=== PATIENT | female | born 1975 | race Two or more races ===

== ENCOUNTER 2016-11-08 23:59 | Emergency (ER) | payer OTHER ==
--- NOTE | ~2016-11-08 | CT2 ---
[facility] A Service of [facility] & [facility] RADIOLOGY TEXT RESULTS PATIENT: ABIMAEL WEAVER LOCATION: [facility] : [birth year] UNIT #: [id number] AGE: [address]: Jeremiah Ley MD SEX: F ORDER DR: [id number] [facility] [address] [place], [place] [address] [id number] E MR#: [id number] Acc #: [id number] NAME: ABIMAEL WEAVER : 1975 SEX: F STUDY DATE/TIME: 11/09/2016 2:35 UNIT: [facility] ROOM: STUDY DESCRIPTION: CT Abd and Pelv W Cont Attending Physician: Eben Ley M.D. Ordering Physician: Eben Ley M.D. Primary Care Physician: Conner Gonzáles M.D. MEDICAL IMAGING REPORT This report is preliminary unless electronic signature is present EXAM CT abdomen and pelvis with contrast, 11/09/2016 HISTORY 40-year-old female in the ED complaining of 1-day history of left side abdomen pain with nausea and vomiting. 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 She also has a history of hepatitis B. TECHNIQUE CT examination of the abdomen and pelvis with oral and IV contrast. This CT exam was performed with one or more of the following radiation dose reduction techniques: automatic exposure control, adjustment of mA and/or kV according to patient size, and iterative reconstruction. COMPARISON CT abdomen and pelvis, 05/22/2016 FINDINGS ABDOMEN FINDINGS: Moderate hepatomegaly and diffuse hepatic steatosis. No mass or other focal liver lesion is demonstrated. Cholecystectomy. No bile duct dilatation. Pancreas and spleen are unremarkable. Bilateral benign-appearing renal cysts. No evidence of urinary obstruction. Mild generalized dilatation of small bowel and colon to the level of the low rectum. GI contrast material is present in small bowel and throughout most of the colon, and there is no evidence of bowel obstruction. The appendix is surgically absent by history. Normal caliber abdominal aorta. PELVIS FINDINGS: The uterus is small. Bladder and rectum are unremarkable. No mass, adenopathy or fluid collection within the abdomen [facility] A Service of [facility] & [facility] RADIOLOGY TEXT RESULTS PATIENT: ABIMAEL WEAVER LOCATION: [facility] : [birth year] UNIT #: [id number] AGE: [address]: Jeremiah Ley MD SEX: F ORDER DR: or pelvis. Limited lung base images show no active disease in the lower chest. IMPRESSION 1. No acute abnormality is identified within the abdomen or pelvis. 2. Hepatomegaly and diffuse hepatic steatosis. 3. Surgically absent appendix. 4. Bilateral benign renal cysts. 5. No change since 05/22/2016. Dictated by... Leonard Reyes M.D. THIS IS AN ELECTRONICALLY VERIFIED REPORT Leonard Reyes M.D. at 11/09/2016 9:43 PM Marybel TD: 11/09/2016 12:38 JOB #: [id number] MEDICAL IMAGING REPORT Page 1 of 1 COPY
[2016-11-08 18:44] LABS: BASOPHIL# 0.1 X10e3 (0-0.3); BASOPHIL% 0.7 % (0-2.5); EOSINOPHIL# 0.1 X10e3 (0-0.7); EOSINOPHIL% 0.5 % (0.0-7.0); HEMATOCRIT 35.6 % (35.0-45.0); HEMOGLOBIN 12.1 gm/dL (12.0-16.0); LYMPHOCYTE# 2.5 X10e3 (1.0-3.5); LYMPHOCYTE% 24.9 % (17.0-45.0); MEAN CELL VOLUME 97.9 FL (83-96); MEAN CORPUSCULAR HEMOGLOBIN 33.2 PG (28-34); MEAN CORPUSCULAR HGB CONC 33.9 g/dL (30-36); MEAN PLATELET VOLUME 9.8 FL (6.5-11.5); MONOCYTE# 0.6 X10e3 (0-1.0); MONOCYTE% 6.3 % (3.0-12.0); NEUTROPHIL# 6.7 X10e3 (1.5-7.1); NEUTROPHIL% 67.6 % (40-75); PLATELET COUNT 153 X10e3 (140-420); RED BLOOD COUNT 3.63 X10e (3.90-5.30); RED CELL DISTRIBUTION WIDTH 13.4 % (11.0-15.5); WHITE BLOOD COUNT 9.9 X10e3 (4.0-10.5)
[2016-11-08 18:53] LABS: DIFF IND NO
[2016-11-08 19:08] LABS: ALBUMIN SERUM 3.8 g/dL (3.5-5.0); ALKALINE PHOSPHATASE 201 U/L (32-92); ALT (SGPT) 35 U/L (10-40); AST (SGOT) 28 U/L (10-42); BILIRUBIN, DIRECT 0.1 mg/dL (0.0-0.2); BILIRUBIN,INDIRECT 0.9 mg/dL (0.0-0.9); BLOOD UREA NITROGEN 21 mg/dL (9-23); BUN/CREATININE RATIO 23.33; CALCIUM SERUM 9.7 mg/dL (8.4-10.2); CARBON DIOXIDE 25 mmol/L (22-31); CHLORIDE 108 mmol/L (100-111); CREATININE SERUM 0.9 mg/dL (0.6-1.4); GLOM FILT RATE Estimated ABOVE60 mL/min (>60); GLUCOSE FASTING 120 mg/dL (70-110); LIPASE 25 U/L (22-51); POTASSIUM 3.7 mmol/L (3.5-5.1); PROTEIN TOTAL SERUM 7.2 g/dL (6.0-8.3); SODIUM 140 mmol/L (135-145)
[~2016-11-08 23:59] MED LIST: ACETAMINOPHEN PO; AMOXICILLIN PO; ANEXSIA 5/325 M1 TA1 PO; BACTRIM DS TABL1 TA2 PO; BENTYL20 M1 PO; BIAXIN PO; BIAXIN250 MG PO; COLACE PO; FLAGYL PO; FLAGYL250 M1 PO; FLEXERIL PO; FLOMAX0.4 M1 PO; GABAPENTIN300 M2 PO; HYDROCODON-ACE1 EAC7 PO; HYDROXYZINE HCL25 M1 PO; IRON1 TAB PO; OMEPRAZOLE40 MG PO; ONDANSETRO4 MG/UDTAB PO; ONDANSETRON4 MG/TAB PO; PEPTO BISMOL PO; PERCOCET PO; PHENERGAN12.5 MG PO; PHENERGAN25 M1 PO; PHENERGAN25 MG PO; PRILOSEC PO; PRILOSEC20 M1 PO; PROTONIX PO; PYRIDIUM PO; REGLAN10 MG PO; SERTRALINE HCL50 M1 PO; TETRACYCLINE PO; THORAZINE PO; TRAMADOL HCL E300 M1 PO; TRAMADOL HCL50 M2 PO; ULTRAM PO; VICODIN 5/1 TAB 5/50 PO; VIREAD300 MG PO; ZOFRAN ODT4 MG/UDTAB PO; ZOFRAN PO; [UNRECOGNIZED DRUG - OTHER]; [UNRECOGNIZED DRUG - OTHER] PO
[2016-11-09 00:26] LABS: URINE SOURCE CLEAN CATCH
[2016-11-09 00:34] LABS: URINE APPEARANCE CLEAR; URINE BILIRUBIN NEG (NEG); URINE BLOOD NEG (NEG); URINE COLOR YELLOW; URINE GLUCOSE NEG (NEG); URINE KETONE NEG (NEG); URINE LEUKOCYTE ESTERASE NEG (NEG); URINE NITRATE NEG (NEG); URINE PH 5.5 (5-8); URINE PROTEIN NEG (NEG); URINE SPECIFIC GRAVITY 1.008 (1.003-1.035); URINE UROBILINOGEN 0.2 MG/DL (NEG)
[2016-11-09 01:01] LABS: CULTURE INDICATED? NO
== END 2016-11-09 04:40 | disposition home or self-care (01) ==
LOC: CED 23:59
PROVIDERS: Emergency Medicine
DX: R10.84 Generalized abdominal pain (principal); R11.10 Vomiting, unspecified; Z85.89 Personal history of malignant neoplasm of other organs and systems; Z87.19 Personal history of other diseases of the digestive system; Z90.49 Acquired absence of other specified parts of digestive tract
CPT/HCPCS: 36415; 74177; 80048; 80076; 81003; 83690; 85025; 96361; 96374; 96375; 96376; 99284; J2270; J2405; Q9967

== ENCOUNTER 2016-11-26 15:40 | Emergency (ER) | payer OTHER ==
--- NOTE | ~2016-11-26 | US85 ---
[facility] A Service of [facility] RADIOLOGY TEXT RESULTS PATIENT: ABIMAEL WEAVER LOCATION: [facility] : 77 UNIT #: [id number] AGE: [address]: Yennifer Perez SEX: F ORDER DR: [id number] [facility] [address]. [place], [place] [address] [id number] E MR#: [id number] Acc #: [id number] NAME: ABIMAEL WEAVER : 1975 SEX: F STUDY DATE/TIME: 11/26/2016 16:02 UNIT: [facility] ROOM: STUDY DESCRIPTION: [facility] Attending Physician: Yennifer Perez Pa-C Ordering Physician: Yennifer Perez Pa-C Primary Care Physician: Marium Cruz M.D. MEDICAL IMAGING REPORT This report is preliminary unless electronic signature is present EXAM Ultrasound left lower extremity venous structures. HISTORY Pain for 3 weeks. Pain 3 weeks mostly behind left knee. No history of clots. No relevant surgical history. TECHNIQUE Venous ultrasound examination of the left lower extremity was performed using grayscale, spectral Doppler and color flow Doppler imaging. FINDINGS The examination is negative. There is no evidence of left lower extremity deep venous thrombus from the groin to the lower calf. Visualized greater saphenous vein is also patent. IMPRESSION Negative examination. No evidence of left lower extremity deep venous thrombosis. Dictated by... Gregorio Schaefer M.D. THIS IS AN ELECTRONICALLY VERIFIED REPORT Gregorio Schaefer M.D. at 11/28/2016 10:42 PM MILTON/brooke TD: 11/26/2016 21:01 JOB #: [id number] [facility] A Service of [facility] RADIOLOGY TEXT RESULTS PATIENT: ABIMAEL WEAVER LOCATION: [facility] : [birth year] UNIT #: [id number] AGE: [address]: Yennifer Perez SEX: F ORDER DR: MEDICAL IMAGING REPORT Page 1 of 1 COPY
== END 2016-11-26 17:31 | disposition home or self-care (01) ==
LOC: CFTX 15:40
DX: M25.562 Pain in left knee (principal); Z90.49 Acquired absence of other specified parts of digestive tract
CPT/HCPCS: 73560; 93971; 99284

== ENCOUNTER 2016-11-30 14:22 | Emergency (ER) | payer OTHER ==
--- NOTE | ~2016-11-30 | CR72 ---
[facility] A Service of [facility] & [facility] RADIOLOGY TEXT RESULTS PATIENT: ABIMAEL WEAVER LOCATION: [facility] : [birth year] UNIT #: [id number] AGE: [address]: Molina Hicks MD SEX: F ORDER DR: [id number] [facility] [address] [place], [place] [address] [id number] E MR#: [id number] Acc #: [id number] NAME: ABIMAEL WEAVER : 1975 SEX: F STUDY DATE/TIME: 11/30/2016 13:37 UNIT: [facility] ROOM: STUDY DESCRIPTION: CR Chest Single View Portable Attending Physician: Molina Hicks M.D. Ordering Physician: Molina Hicks M.D. Primary Care Physician: Marium Cruz M.D. MEDICAL IMAGING REPORT This report is preliminary unless electronic signature is present EXAM Single view chest HISTORY Chest pain, weakness since 11/29/16 COMPARISON STUDIES Prior exam from 06/18/16 FINDINGS The heart size is within normal limits for portable technique. No pneumothorax, pleural effusion or acute infiltrate is seen. No aggressive osseous abnormalities are identified. Dictated by... Marion Kahn M.D. THIS IS AN ELECTRONICALLY VERIFIED REPORT Marion Kahn M.D. at 12/01/2016 12:27 PM AFF/ea TD: 11/30/2016 20:46 JOB #: [id number] MEDICAL IMAGING REPORT Page 1 of 1 COPY
--- NOTE | ~2016-11-30 | EKG ---
PATIENT: ABIMAEL WEAVER UNIT #: [id number] Ventricular Rate: 76 BPM Atrial Rate: 76 BPM P-R Interval: 138 ms QRS Duration: 84 ms Q-T Interval: 372 ms QTC Calculation(Bezet): 418 ms P [place]: 59 degrees Calculated R [place]: 64 degrees Calculated T [place]: 52 degrees Diagnosis Line: Normal sinus rhythm Diagnosis Line: Normal ECG Diagnosis Line: Diagnosis Line: Confirmed by BEAR YAÑEZ MD ([id number]) on 11/30/2016 Diagnosis Line: 10:28:38 PM INTERPRETING MD: PARI ESPINAL
[2016-11-30 13:42] LABS: BASOPHIL# 0.1 X10e3 (0-0.3); BASOPHIL% 0.9 % (0-2.5); EOSINOPHIL# 0.1 X10e3 (0-0.7); EOSINOPHIL% 0.7 % (0.0-7.0); HEMATOCRIT 36.2 % (35.0-45.0); HEMOGLOBIN 12.2 gm/dL (12.0-16.0); LYMPHOCYTE# 1.6 X10e3 (1.0-3.5); LYMPHOCYTE% 19.5 % (17.0-45.0); MEAN CORPUSCULAR HEMOGLOBIN 33.3 PG (28-34); MEAN CORPUSCULAR HGB CONC 33.6 g/dL (30-36); MEAN PLATELET VOLUME 10.6 FL (6.5-11.5); MONOCYTE# 0.8 X10e3 (0-1.0); MONOCYTE% 9.6 % (3.0-12.0); NEUTROPHIL# 5.5 X10e3 (1.5-7.1); NEUTROPHIL% 69.3 % (40-75); PLATELET COUNT 139 X10e3 (140-420); RED BLOOD COUNT 3.66 X10e (3.90-5.30); RED CELL DISTRIBUTION WIDTH 13.9 % (11.0-15.5)
[2016-11-30 13:46] LABS: DIFF IND NO
[2016-11-30 14:09] LABS: PARTIAL THROMBOPLASTIN TIME 20.2 SECONDS (23.5-31.3); PROTHROMBIN TIME (PATIENT) 10.8 SECONDS (9.6-11.5)
[2016-11-30 14:11] LABS: ALBUMIN SERUM 3.7 g/dL (3.5-5.0); BILIRUBIN, DIRECT 0.3 mg/dL (0.0-0.2); BILIRUBIN,INDIRECT 1.1 mg/dL (0.0-0.9); BILIRUBIN,TOTAL 1.4 mg/dL (0.2-2.0); CALCIUM SERUM 9.2 mg/dL (8.4-10.2); GLOM FILT RATE Estimated 70.4 mL/min (>60); POTASSIUM 3.6 mmol/L (3.5-5.1); PROTEIN TOTAL SERUM 7.1 g/dL (6.0-8.3)
[2016-11-30 15:36] LABS: POC - CKMB <1.0 ng/mL (0.0-7.9); POC - TROPONIN <0.05 ng/mL (<=0.05)
== END 2016-11-30 17:27 | disposition home or self-care (01) ==
LOC: CED 14:22
PROVIDERS: Emergency Medicine
DX: R07.9 Chest pain, unspecified (principal); Z90.49 Acquired absence of other specified parts of digestive tract; Z88.0 Allergy status to penicillin; Z88.8 Allergy status to other drugs, medicaments and biological substances
CPT/HCPCS: 36415; 71010; 80048; 80076; 82553; 83880; 84484; 85025; 85379; 85610; 85730; 93005; 99284

== ENCOUNTER 2016-12-03 16:00 | Emergency (ER) | payer OTHER ==
--- NOTE | ~2016-12-03 | CT71 ---
[facility] A Service of [facility] & [facility] RADIOLOGY TEXT RESULTS PATIENT: ABIMAEL WEAVER LOCATION: [facility] : [birth year] UNIT #: [id number] AGE: [address]: Iraida Baker MD SEX: F ORDER DR: [id number] [facility] [address] [place], [place] [address] [id number] E MR#: [id number] Acc #: [id number] NAME: ABIMAEL WEAVER : 1975 SEX: F STUDY DATE/TIME: 12/03/2016 16:57 UNIT: [facility] ROOM: STUDY DESCRIPTION: CT Head Wo Contrast Attending Physician: Iraida Baker M.D. Ordering Physician: Iraida Baker M.D. Primary Care Physician: Marium Cruz M.D. MEDICAL IMAGING REPORT This report is preliminary unless electronic signature is present EXAM CT head, noncontrast, 12/03/2016. HISTORY 41-year-old female complaining of left side headache and facial numbness. Symptoms began yesterday. TECHNIQUE CT examination of the head without IV contrast. This CT exam was performed with one or more of the following radiation dose reduction techniques: automatic control, adjustment of mA and/or kV according to patient size, and iterative reconstruction. FINDINGS The examination is negative. No evidence of intracranial hemorrhage, mass, mass effect, cerebral edema, hydrocephalus or additional abnormality. No significant change since 12/17/2014. IMPRESSION Negative noncontrast head CT examination. Dictated by... Leonard Reyes M.D. THIS IS AN ELECTRONICALLY VERIFIED REPORT Leonard Reyes M.D. at 12/06/2016 5:58 AM LUCEROW/joselin TD: 12/04/2016 05:53 JOB #: [id number] MEDICAL IMAGING REPORT Page 1 of 1 COPY
== END 2016-12-03 18:38 | disposition home or self-care (01) ==
LOC: CED 16:00
DX: M54.12 Radiculopathy, cervical region (principal); Z90.49 Acquired absence of other specified parts of digestive tract; Z88.0 Allergy status to penicillin; Z88.5 Allergy status to narcotic agent
CPT/HCPCS: 70450; 99284

== ENCOUNTER → 2016-12-07 | Outpatient (CLI) | payer OTHER ==
--- NOTE | ~2016-12-07 | US5 ---
[facility] A Service of [facility] & [facility] RADIOLOGY TEXT RESULTS PATIENT: ABIMAEL WEAVER LOCATION: [facility] : 77 UNIT #: [id number] AGE: [address]: Juvenal Sharp MD SEX: F ORDER DR: [id number] [facility] [address] [place], [place] [address] [id number] O MR#: [id number] Acc #: [id number] NAME: ABIMAEL WEAVER : 1975 SEX: F STUDY DATE/TIME: 12/07/2016 8:48 UNIT: [facility] ROOM: STUDY DESCRIPTION: US Abdominal Complete Attending Physician: Juvenal Sharp III, M.D. Referring Physician: Juvenal Sharp III, M.D. Ordering Physician: Juvenal Sharp III, M.D. Primary Care Physician: Bennett Coker M.D. MEDICAL IMAGING REPORT This report is preliminary unless electronic signature is present EXAM Abdominal ultrasound INDICATIONS Hepatitis B. Patient also reports right upper quadrant pain, nausea for 1 year. TECHNIQUE Tamayo-scale, color Doppler and spectral Doppler waveform analysis was performed through the abdomen. FINDINGS There is suboptimal visualization of the pancreas. Abdominal aorta measures within normal size limits. The liver is heterogeneous in echotexture although I do not see any definite focal hepatic lesions. Bank Consultant questions some echogenic areas within the left kidney. I do not see any shadowing to suggest that these are stones and, in fact, on prior imaging patient has not had renal stones. There are left renal cysts. Spleen is within normal limits. Right kidney also contains cysts. No definite solid renal masses are identified. Main portal vein is patent with hepatopetal flow. No intra- or extrahepatic biliary dilatation is identified. IMPRESSION 1. Diffuse hepatic steatosis and coarsening of hepatic echotexture without focal hepatic lesion identified. 2. Bilateral renal cysts. 3. Bank Consultant questions some echogenic foci within the left kidney; however, I do not see any definite shadowing to suggest that these are stones. In fact on prior imaging, the patient has not had renal stones. No hydronephrosis is seen on either side. [facility] A Service of [facility] & [facility] RADIOLOGY TEXT RESULTS PATIENT: ABIMAEL WEAVER LOCATION: [facility] : [birth year] UNIT #: [id number] AGE: [address]: Juvenal Sharp MD SEX: F ORDER DR: Dictated by... Marion Kahn M.D. THIS IS AN ELECTRONICALLY VERIFIED REPORT Marion Kahn M.D. at 12/08/2016 3:03 PM AFF/psc TD: 12/07/2016 20:22 JOB #: [id number] MEDICAL IMAGING REPORT Page 1 of 1 COPY
== END | disposition home or self-care (01) ==
LOC: CGUS 08:21
DX: B19.10 Unspecified viral hepatitis B without hepatic coma (principal); K76.0 Fatty (change of) liver, not elsewhere classified; N28.1 Cyst of kidney, acquired
CPT/HCPCS: 76700

== ENCOUNTER 2017-02-09 19:25 | Emergency (ER) | payer OTHER ==
--- NOTE | ~2017-02-09 | EKG ---
PATIENT: ABIMAEL WEAVER UNIT #: [id number] Ventricular Rate: 82 BPM Atrial Rate: 82 BPM P-R Interval: 138 ms QRS Duration: 90 ms Q-T Interval: 368 ms QTC Calculation(Bezet): 429 ms P [place]: 46 degrees Calculated R [place]: 37 degrees Calculated T [place]: 28 degrees Diagnosis Line: Normal sinus rhythm with sinus arrhythmia Diagnosis Line: Normal ECG Diagnosis Line: No previous ECGs available Diagnosis Line: Confirmed by LEVI ESCAMILLA MD ([id number]) on Diagnosis Line: 02/11/2017 6:37:53 AM INTERPRETING MD: GLENNA
[2017-02-09 21:18] LABS: BASOPHIL# 0.1 X10e3 (0-0.3); BASOPHIL% 0.7 % (0-2.5); EOSINOPHIL# 0.1 X10e3 (0-0.7); EOSINOPHIL% 0.8 % (0.0-7.0); HEMOGLOBIN 11.6 gm/dL (12.0-16.0); LYMPHOCYTE% 22.9 % (17.0-45.0); MEAN CELL VOLUME 103.6 FL (83-96); MEAN CORPUSCULAR HEMOGLOBIN 35.3 PG (28-34); MEAN CORPUSCULAR HGB CONC 34.1 g/dL (30-36); MEAN PLATELET VOLUME 9.8 FL (6.5-11.5); MONOCYTE# 0.7 X10e3 (0-1.0); MONOCYTE% 8.2 % (3.0-12.0); NEUTROPHIL# 5.9 X10e3 (1.5-7.1); NEUTROPHIL% 67.4 % (40-75); PLATELET COUNT 181 X10e3 (140-420); RED BLOOD COUNT 3.28 X10e (3.90-5.30); RED CELL DISTRIBUTION WIDTH 13.2 % (11.0-15.5); WHITE BLOOD COUNT 8.7 X10e3 (4.0-10.5)
[2017-02-09 21:19] LABS: DIFF IND NO
[2017-02-09 21:45] LABS: ALBUMIN SERUM 3.5 g/dL (3.5-5.0); BILIRUBIN, DIRECT 0.1 mg/dL (0.0-0.2); BILIRUBIN,INDIRECT 0.6 mg/dL (0.0-0.9); BILIRUBIN,TOTAL 0.7 mg/dL (0.2-2.0); BUN/CREATININE RATIO 22.5; CALCIUM SERUM 9.2 mg/dL (8.4-10.2); CREATININE SERUM 0.8 mg/dL (0.6-1.4); GLOM FILT RATE Estimated 92.3 mL/min (>60); POTASSIUM 3.4 mmol/L (3.5-5.1); PROTEIN TOTAL SERUM 6.9 g/dL (6.0-8.3)
[2017-02-09 22:45] LABS: URINE SOURCE CLEAN CATCH
[2017-02-09 22:54] LABS: URINE APPEARANCE CLEAR; URINE BILIRUBIN NEG (NEG); URINE BLOOD NEG (NEG); URINE COLOR YELLOW; URINE GLUCOSE NEG (NEG); URINE KETONE NEG (NEG); URINE LEUKOCYTE ESTERASE 1+ (NEG); URINE NITRATE NEG (NEG); URINE PH 5.5 (5-8); URINE PROTEIN NEG (NEG); URINE SPECIFIC GRAVITY 1.019 (1.003-1.035); URINE UROBILINOGEN 0.2 MG/DL (NEG)
[2017-02-09 22:58] LABS: CULTURE INDICATED? YES; U HYALINE CASTS AUWI 0-2 /[LPF]; URBCS1 AUWI 0-2 /[HPF] (0-2); URINE BACTERIA AUWI 1+ (NEGATIVE); URINE SQUAMOUS EPITHELIAL CELL OCC /[HPF]
[2017-02-09 23:48] LABS: POC - CKMB <1.0 ng/mL (0.0-7.9); POC - TROPONIN <0.05 ng/mL (<=0.05)
== END 2017-02-10 00:50 | disposition home or self-care (01) ==
LOC: CED 19:25
PROVIDERS: Emergency Medicine
DX: R55 Syncope and collapse (principal); N39.0 Urinary tract infection, site not specified; Z90.49 Acquired absence of other specified parts of digestive tract; Z86.19 Personal history of other infectious and parasitic diseases; Z98.890 Other specified postprocedural states
CPT/HCPCS: 36415; 80048; 80076; 81003; 82553; 82947; 84443; 84484; 84703; 85025; 87086; 93005; 96360; 99284

== ENCOUNTER 2017-02-12 14:54 | Emergency (ER) | payer OTHER ==
--- NOTE | ~2017-02-12 | EKG ---
PATIENT: ABIMAEL WEAVER UNIT #: [id number] Ventricular Rate: 81 BPM Atrial Rate: 81 BPM P-R Interval: 130 ms QRS Duration: 88 ms Q-T Interval: 368 ms QTC Calculation(Bezet): 427 ms P [place]: 51 degrees Calculated R [place]: 39 degrees Calculated T [place]: 35 degrees Diagnosis Line: Normal sinus rhythm Diagnosis Line: Normal ECG Diagnosis Line: Diagnosis Line: Confirmed by LEVI ESCAMILLA MD ([id number]) on Diagnosis Line: 02/13/2017 10:37:31 PM INTERPRETING MD: GLENNA
[2017-02-12 16:51] LABS: BASOPHIL# 0.1 X10e3 (0-0.3); BASOPHIL% 0.7 % (0-2.5); EOSINOPHIL# 0.1 X10e3 (0-0.7); EOSINOPHIL% 0.9 % (0.0-7.0); HEMOGLOBIN 13.5 gm/dL (12.0-16.0); LYMPHOCYTE# 2.4 X10e3 (1.0-3.5); LYMPHOCYTE% 24.1 % (17.0-45.0); MEAN CELL VOLUME 104.4 FL (83-96); MEAN CORPUSCULAR HEMOGLOBIN 35.2 PG (28-34); MEAN CORPUSCULAR HGB CONC 33.7 g/dL (30-36); MEAN PLATELET VOLUME 10.1 FL (6.5-11.5); MONOCYTE# 0.8 X10e3 (0-1.0); NEUTROPHIL# 6.5 X10e3 (1.5-7.1); NEUTROPHIL% 66.3 % (40-75); PLATELET COUNT 226 X10e3 (140-420); RED BLOOD COUNT 3.84 X10e (3.90-5.30); RED CELL DISTRIBUTION WIDTH 13.4 % (11.0-15.5); WHITE BLOOD COUNT 9.8 X10e3 (4.0-10.5)
[2017-02-12 16:53] LABS: DIFF IND NO
[2017-02-12 17:00] LABS: INR 1.1; PARTIAL THROMBOPLASTIN TIME 25.5 SECONDS (23.5-31.3); PROTHROMBIN TIME (PATIENT) 11.6 SECONDS (10.0-11.7)
[2017-02-12 17:04] LABS: POC - CKMB 1.3 ng/mL (0.0-7.9); POC - TROPONIN <0.05 ng/mL (<=0.05)
[2017-02-12 17:10] LABS: ALBUMIN SERUM 3.7 g/dL (3.5-5.0); BILIRUBIN, DIRECT 0.1 mg/dL (0.0-0.2); BILIRUBIN,INDIRECT 0.6 mg/dL (0.0-0.9); BILIRUBIN,TOTAL 0.7 mg/dL (0.2-2.0); BUN/CREATININE RATIO 24.44; CALCIUM SERUM 9.6 mg/dL (8.4-10.2); CREATININE SERUM 0.9 mg/dL (0.6-1.4); PROTEIN TOTAL SERUM 7.7 g/dL (6.0-8.3)
== END 2017-02-12 17:14 | disposition home or self-care (01) ==
LOC: CED 14:54
PROVIDERS: Emergency Medicine
DX: R07.89 Other chest pain (principal); R53.83 Other fatigue; J45.909 Unspecified asthma, uncomplicated; Z87.442 Personal history of urinary calculi; Z90.49 Acquired absence of other specified parts of digestive tract; Z88.0 Allergy status to penicillin; Z88.6 Allergy status to analgesic agent
CPT/HCPCS: 36415; 80048; 80076; 82553; 84484; 85025; 85610; 85730; 93005; 99285; C9113

== ENCOUNTER 2017-02-16 13:34 | Emergency (ER) | payer OTHER ==
--- NOTE | ~2017-02-16 | CT2 ---
[facility] A Service of [facility] RADIOLOGY TEXT RESULTS PATIENT: ABIMAEL WEAVER LOCATION: [facility] : 77 UNIT #: [id number] AGE: [address]: Ramos Carter MD SEX: F ORDER DR: [id number] [facility] [address] [place], [place] [address] [id number] E MR#: [id number] Acc #: [id number] NAME: ABIMAEL WEAVER : 1975 SEX: F STUDY DATE/TIME: 02/16/2017 17:35 UNIT: [facility] ROOM: STUDY DESCRIPTION: CT Abd and Pelv W Cont Attending Physician: Ramos Carter M.D. Ordering Physician: Ramos Carter M.D. Primary Care Physician: Bennett Coker M.D. MEDICAL IMAGING REPORT This report is preliminary unless electronic signature is present EXAM CT abdomen and pelvis with IV contrast, 02/16/2017. PROCEDURE Axial CT abdomen and pelvis with IV contrast with multiplanar reformats. This CT exam was performed with one or more of the following radiation dose reduction techniques: Automatic exposure control, adjustment of mA and/or kV according to patient size, and iterative reconstruction. HISTORY Abdominal pain with vomiting for 1 day. FINDINGS The lung bases are unremarkable. ABDOMEN: There is fatty infiltration of the liver and the gallbladder has been removed, but the liver, spleen and pancreas are otherwise normal. There are bilateral renal simple cysts, but the kidneys and adrenal glands are otherwise normal. The aorta is normal in caliber. There is no bowel obstruction. PELVIS: There is no pelvic mass or inflammatory change or abnormal fluid collection. There is no hernia or bowel obstruction. There is no acute bony abnormality. IMPRESSION No acute abnormality. There is fatty infiltration of the liver, but no renal or bowel or biliary obstruction. The gallbladder has been removed. There are renal simple cysts but no acute abnormality is seen. Dictated by... [facility] A Service of [facility] RADIOLOGY TEXT RESULTS PATIENT: ABIMAEL WEAVER LOCATION: [facility] : [birth year] UNIT #: [id number] AGE: [address]: Ramos Carter MD SEX: F ORDER DR: Desmond Henderson M.D. THIS IS AN ELECTRONICALLY VERIFIED REPORT Desmond Henderson M.D. at 02/18/2017 5:31 PM TEV/psc TD: 02/16/2017 21:11 JOB #: [id number] MEDICAL IMAGING REPORT Page 1 of 1 COPY
[2017-02-16 14:08] LABS: BASOPHIL# 0.1 X10e3 (0-0.3); BASOPHIL% 0.7 % (0-2.5); EOSINOPHIL% 0.2 % (0.0-7.0); HEMATOCRIT 36.5 % (35.0-45.0); HEMOGLOBIN 12.5 gm/dL (12.0-16.0); LYMPHOCYTE# 2.3 X10e3 (1.0-3.5); LYMPHOCYTE% 21.5 % (17.0-45.0); MEAN CELL VOLUME 102.9 FL (83-96); MEAN CORPUSCULAR HEMOGLOBIN 35.2 PG (28-34); MEAN CORPUSCULAR HGB CONC 34.2 g/dL (30-36); MEAN PLATELET VOLUME 9.5 FL (6.5-11.5); MONOCYTE# 0.7 X10e3 (0-1.0); MONOCYTE% 6.8 % (3.0-12.0); NEUTROPHIL# 7.5 X10e3 (1.5-7.1); NEUTROPHIL% 70.8 % (40-75); PLATELET COUNT 195 X10e3 (140-420); RED BLOOD COUNT 3.54 X10e (3.90-5.30); RED CELL DISTRIBUTION WIDTH 12.9 % (11.0-15.5); WHITE BLOOD COUNT 10.6 X10e3 (4.0-10.5)
[2017-02-16 14:09] LABS: DIFF IND NO
[2017-02-16 14:34] LABS: ALBUMIN SERUM 3.9 g/dL (3.5-5.0); BILIRUBIN, DIRECT 0.2 mg/dL (0.0-0.2); BILIRUBIN,INDIRECT 1.3 mg/dL (0.0-0.9); BILIRUBIN,TOTAL 1.5 mg/dL (0.2-2.0); BUN/CREATININE RATIO 21.11; CALCIUM SERUM 9.4 mg/dL (8.4-10.2); CREATININE SERUM 0.9 mg/dL (0.6-1.4); POTASSIUM 4.1 mmol/L (3.5-5.1); PROTEIN TOTAL SERUM 7.7 g/dL (6.0-8.3)
[2017-02-16 16:25] LABS: URINE SOURCE CLEAN CATCH
[2017-02-16 16:29] LABS: URINE APPEARANCE CLEAR; URINE BILIRUBIN NEG (NEG); URINE BLOOD NEG (NEG); URINE COLOR YELLOW; URINE GLUCOSE NEG (NEG); URINE KETONE NEG (NEG); URINE LEUKOCYTE ESTERASE NEG (NEG); URINE NITRATE NEG (NEG); URINE PROTEIN NEG (NEG); URINE SPECIFIC GRAVITY 1.021 (1.003-1.035); URINE UROBILINOGEN 0.2 MG/DL (NEG)
[2017-02-16 16:37] LABS: CULTURE INDICATED? NO
== END 2017-02-16 18:57 | disposition home or self-care (01) ==
LOC: CED 13:34
DX: R10.9 Unspecified abdominal pain (principal); G89.29 Other chronic pain; R11.2 Nausea with vomiting, unspecified; K21.9 Gastro-esophageal reflux disease without esophagitis; Z86.19 Personal history of other infectious and parasitic diseases; Z90.49 Acquired absence of other specified parts of digestive tract; Z88.0 Allergy status to penicillin; Z88.8 Allergy status to other drugs, medicaments and biological substances; Z79.899 Other long term (current) drug therapy
CPT/HCPCS: 74177; 80048; 80076; 81003; 83690; 84703; 85025; 96361; 96374; 96375; 99284; C9113; J2765; Q9967

== ENCOUNTER 2017-04-11 20:24 | Emergency (ER) | payer OTHER ==
[~2017-04-11] VITALS: Ht 152.4 cm; Wt 61.7 kg
--- NOTE | ~2017-04-11 | CT4 ---
[facility] A Service of [facility] & [facility] RADIOLOGY TEXT RESULTS PATIENT: ABIMAEL WEAVER LOCATION: [facility] : 77 UNIT #: [id number] AGE: [address]: Jose Díaz MD SEX: F ORDER DR: [id number] [facility] [address]. [place], [place] [address] [id number] E MR#: [id number] Acc #: [id number] NAME: ABIMAEL WEAVER : 1975 SEX: F STUDY DATE/TIME: 04/12/2017 0:50 UNIT: [facility] ROOM: STUDY DESCRIPTION: CT Abd and Pelv Wo Cont Attending Physician: Jose Díaz M.D. Ordering Physician: Jose Díaz M.D. Primary Care Physician: Marium Cruz M.D. MEDICAL IMAGING REPORT This report is preliminary unless electronic signature is present EXAM CT abdomen and pelvis, noncontrast, 04/12/2017. HISTORY 41-year-old female in the ED complaining of 1-day history of left flank pain and fever. She has a history of hepatitis B and C. TECHNIQUE CT examination of the abdomen and pelvis without oral or IV contrast using kidney stone protocol, as ordered. This CT exam was performed with one or more of the following radiation dose reduction techniques: automatic exposure control, adjustment of mA and/or kV according to patient size, and iterative reconstruction. FINDINGS ABDOMEN: No radiopaque urinary calculi are visible within the kidneys, ureters or urinary bladder, and there is no evidence of urinary obstruction. Bilateral typical and atypical hyperdense renal cysts are present, unchanged where visible on the prior study of 02/16/2017. Mild hepatomegaly with relative left lobe hypertrophy suggesting hepatic cirrhosis. Mild to moderate splenomegaly. Spleen measures about 13 cm. No upper abdominal ascites. Cholecystectomy without bile duct dilatation. Pancreas is negative. Small bowel and colon are normal in caliber and appearance, as imaged. The appendix is surgically absent by history. PELVIS: The uterus is small. Bladder and rectum are negative. No inguinal hernia. Limited lung base images show no active disease in the lower chest. [facility] A Service of [facility] & [facility] RADIOLOGY TEXT RESULTS PATIENT: ABIMAEL WEAVER LOCATION: [facility] : [birth year] UNIT #: [id number] AGE: [address]: Jose Díaz MD SEX: F ORDER DR: IMPRESSION 1. No acute abnormality is seen within the abdomen or pelvis. No visible nephrolithiasis or evidence of urinary obstruction. 2. Mild hepatomegaly with relative left lobe hypertrophy suggesting hepatic cirrhosis. Patient has a history of hepatitis C. Mild to moderate splenomegaly. No abdominal ascites. 3. Cholecystectomy without bile duct dilatation. Previous appendectomy. Dictated by... Leonard Reyes M.D. THIS IS AN ELECTRONICALLY VERIFIED REPORT Leonard Reyes M.D. at 04/12/2017 4:46 PM Jennifer TD: 04/12/2017 11:30 JOB #: [id number] MEDICAL IMAGING REPORT Page 1 of 1 COPY
[2017-04-11 20:50] LABS: URINE SOURCE CLEAN CATCH
[2017-04-11 20:54] LABS: BASOPHIL# 0.1 X10e3 (0-0.3); EOSINOPHIL% 0.6 % (0.0-7.0); HEMATOCRIT 35.1 % (35.0-45.0); LYMPHOCYTE# 2.4 X10e3 (1.0-3.5); LYMPHOCYTE% 29.9 % (17.0-45.0); MEAN CELL VOLUME 100.8 FL (83-96); MEAN CORPUSCULAR HEMOGLOBIN 34.5 PG (28-34); MEAN CORPUSCULAR HGB CONC 34.2 g/dL (30-36); MEAN PLATELET VOLUME 10.4 FL (6.5-11.5); MONOCYTE# 0.7 X10e3 (0-1.0); MONOCYTE% 8.5 % (3.0-12.0); NEUTROPHIL# 4.8 X10e3 (1.5-7.1); PLATELET COUNT 166 X10e3 (140-420); RED BLOOD COUNT 3.49 X10e (3.90-5.30); RED CELL DISTRIBUTION WIDTH 12.1 % (11.0-15.5); WHITE BLOOD COUNT 7.9 X10e3 (4.0-10.5)
[2017-04-11 20:55] LABS: URINE APPEARANCE CLOUDY; URINE BILIRUBIN NEG (NEG); URINE BLOOD 2+ (NEG); URINE COLOR YELLOW; URINE GLUCOSE NEG (NEG); URINE KETONE NEG (NEG); URINE LEUKOCYTE ESTERASE 3+ (NEG); URINE NITRATE NEG (NEG); URINE PH 5.5 (5-8); URINE PROTEIN 2+ (NEG); URINE SPECIFIC GRAVITY 1.018 (1.003-1.035); URINE UROBILINOGEN 0.2 MG/DL (NEG)
[2017-04-11 20:55] LABS: DIFF IND NO
[2017-04-11 20:57] LABS: CULTURE INDICATED? YES; URINE BACTERIA AUWI 4+ (NEGATIVE); URINE SQUAMOUS EPITHELIAL CELL OCC /[HPF]; UWBCS1 AUWI INNUM (0-5)
[2017-04-11 21:17] LABS: BILIRUBIN, DIRECT 0.3 mg/dL (0.0-0.2); BILIRUBIN,INDIRECT 1.2 mg/dL (0.0-0.9); BILIRUBIN,TOTAL 1.5 mg/dL (0.2-2.0); BUN/CREATININE RATIO 18.18; CALCIUM SERUM 9.2 mg/dL (8.4-10.2); CREATININE SERUM 1.1 mg/dL (0.6-1.4); GLOM FILT RATE Estimated 62.8 mL/min (>60); PROTEIN TOTAL SERUM 7.6 g/dL (6.0-8.3)
== END 2017-04-12 02:07 | disposition home or self-care (01) ==
LOC: CED 20:24
DX: N39.0 Urinary tract infection, site not specified (principal); Z87.442 Personal history of urinary calculi
CPT/HCPCS: 36415; 74176; 80048; 80076; 81003; 83690; 84703; 85025; 87086; 87088; 87186; 99284

== ENCOUNTER → 2017-04-13 | Outpatient (CLI) | payer OTHER ==
--- NOTE | ~2017-04-13 | US17 ---
[facility] A Service of [facility] & [facility] RADIOLOGY TEXT RESULTS PATIENT: ABIMAEL WEAVER LOCATION: [facility] : 77 UNIT #: [id number] AGE: [address]: DAI HONEYCUTT SEX: F ORDER DR: [id number] [facility] [address] [place], [place] [address] [id number] O MR#: [id number] Acc #: [id number] NAME: ABIMAEL WEAVER : 1975 SEX: F STUDY DATE/TIME: 04/13/2017 12:03 UNIT: [facility] ROOM: STUDY DESCRIPTION: US Breast Bilateral Attending Physician: Dai Honeycutt M.D. Referring Physician: Marium Cruz M.D. Ordering Physician: Alisia Not Listed Primary Care Physician: Dai Honeycutt M.D. MEDICAL IMAGING REPORT This report is preliminary unless electronic signature is present EXAM Targeted ultrasound of both breasts, 04/13/2017. FINDINGS Please see bilateral breast mammogram for results. BIRADS: 1 Negative Dictated by... Alfonzo Harris M.D. THIS IS AN ELECTRONICALLY VERIFIED REPORT Alfonzo Harris M.D. at 04/13/2017 4:24 PM Francisca TD: 04/13/2017 14:01 JOB #: [id number] MEDICAL IMAGING REPORT Page 1 of 1 COPY
--- NOTE | ~2017-04-13 | MY26 ---
[facility] A Service of [facility] & [facility] RADIOLOGY TEXT RESULTS PATIENT: ABIMAEL WEAVER LOCATION: [facility] : 77 UNIT #: [id number] AGE: [address]: DAI HONEYCUTT SEX: F ORDER DR: [id number] [facility] [address] [place], [place] [address] [id number] O MR#: [id number] Acc #: [id number] NAME: ABIMAEL WEAVER : 1975 SEX: F STUDY DATE/TIME: 04/13/2017 11:41 UNIT: [facility] ROOM: STUDY DESCRIPTION: [facility] DIAGNOSTIC W/ CAD BILAT Attending Physician: Dai Honeycutt M.D. Referring Physician: Marium Cruz M.D. Ordering Physician: Physician Non-Staff Primary Care Physician: Dai Honeycutt M.D. MEDICAL IMAGING REPORT This report is preliminary unless electronic signature is present EXAM Bilateral digital diagnostic mammogram with targeted breast ultrasound, 04/13/2017. INDICATIONS 41-year-old female complaining of bilateral breast burning and nodularity for the past 2 months. She feels multiple nodules in both breasts. This localizes to the upper outer aspects of both breasts. There is no personal or family history of breast cancer. No prior breast surgeries. TECHNIQUE CC, MLO and true lateral views of the breasts were obtained and reviewed with an FDA-approved CAD device. Targeted ultrasound of both breasts was performed in the area of patient palpable concern. COMPARISON STUDIES 02/05/2016, 01/03/2015, 03/18/2009 FINDINGS Mammographic findings: The breast parenchyma is fatty replaced. There is no new dominant nodule, mass or suspicious cluster of microcalcifications. No new adenopathy. Faint nodularity in the upper outer hemisphere left breast unchanged dating back to 2008 and benign, probably representing an intramammary node. There is no mammographic correlate for the patient's complaint of burning and nodularity in both breast. Targeted ultrasound was thereafter performed bilaterally. Ultrasound findings: The patient was initially scanned independently by the technologist and then rescanned in my presence. Limited physical exam (with patient consent) was performed of both breasts in the areas of patient palpable concern. My examination here in the department was negative with respect to both breasts. [facility] A Service of [facility] RADIOLOGY TEXT RESULTS PATIENT: ABIMAEL WEAVER LOCATION: [facility] : 77 UNIT #: [id number] AGE: [address]: DAI HONEYCUTT SEX: F ORDER DR: Right breast: Imaging of the 1 o'clock through 3 o'clock positions of the right breast was performed along with imaging of the 7 and 8 o'clock positions in the areas of patient palpable concern. The breast tissue appears unremarkable. Imaging findings are concordant with exam and mammography. Left breast: Imaging of the left breast was performed in the 12 o'clock, 3 o'clock and 9 o'clock positions in the areas of patient palpable concern. Ultrasound is negative and concordant with physical exam and mammography findings. Absent, new or worsening symptoms in either breast, the patient should return for a screening mammogram in 1 year. Findings and recommendations were discussed with the patient here in the department. She voiced understanding and agreement. IMPRESSION Negative bilateral diagnostic mammogram and targeted bilateral breast ultrasound studies. Clinical considerations to determine additional imaging at this time. Return to an annual screening regimen is recommended. See discussion above. Patients over the age of 40 are entered into a reminder system with target due date for the next mammogram. A result letter will also be sent to the patient. BIRADS 1 Negative Dictated by... Alfonzo Harris M.D. THIS IS AN ELECTRONICALLY VERIFIED REPORT Alfonzo Harris M.D. at 04/13/2017 4:24 PM WYATT/trina TD: 04/13/2017 13:40 JOB #: [id number] MEDICAL IMAGING REPORT Page 1 of 1 COPY
== END | disposition home or self-care (01) ==
LOC: CMAM 11:03
DX: N64.4 Mastodynia (principal)
CPT/HCPCS: 76641; G0204

== ENCOUNTER → 2017-04-15 | Outpatient (CLI) | payer OTHER ==
--- NOTE | ~2017-04-15 | US5 ---
[facility] A Service of [facility] & [facility] RADIOLOGY TEXT RESULTS PATIENT: ABIMAEL WEAVER LOCATION: [facility] : 77 UNIT #: [id number] AGE: [address]: Juvenal Sharp MD SEX: F ORDER DR: [id number] [facility] [address] [place], [place] [address] [id number] O MR#: [id number] Acc #: [id number] NAME: ABIMAEL WEAVER : 1975 SEX: F STUDY DATE/TIME: 04/15/2017 12:47 UNIT: [facility] ROOM: STUDY DESCRIPTION: US Abdominal Complete Attending Physician: Juvenal Sharp III, M.D. Referring Physician: Juvenal Sharp III, M.D. Ordering Physician: Juvenal Sharp III, M.D. Primary Care Physician: Marium Cruz M.D. MEDICAL IMAGING REPORT This report is preliminary unless electronic signature is present EXAM Complete abdominal ultrasound, 04/15/2017. HISTORY Hepatitis B virus. Abdominal pain for years. Previous cholecystectomy. COMPARISON Complete abdominal ultrasound 12/07/2016. CT abdomen and pelvis with contrast 02/16/2017. CT abdomen and pelvis without contrast 04/12/2017. FINDINGS The caliber of the abdominal aorta is within normal limits, measuring up to 1.6 cm proximally, and color and spectral Doppler flow is demonstrated within the abdominal aorta. Intrahepatic IVC demonstrates normal color flow. Pancreas is partially obscured by bowel gas, but the visualized segments appear within normal limits. The liver demonstrates a diffusely coarsened echotexture with diminished acoustic transmission suggesting features of hepatic steatosis, which can also be seen on the previous CT from 02/16/2017. No focal liver lesions are identified. The main portal vein is patent. No ascites is seen. A 3.1-cm cyst is seen within the right lower renal pole, and a 3.2-cm cyst is seen within left lower renal pole. Technologist has measured what appears to be a small lymph node in the splenorenal fossa measuring about 1 cm. The spleen size is within normal limits, 13.4 cm. Gallbladder surgically absent. No biliary dilation is seen. Common bile duct caliber is within normal limits, 3 mm. IMPRESSION 1. Hepatic steatosis. No focal liver lesions are identified. 2. Bilateral renal cysts. [facility]. [facility] A Service of [facility] RADIOLOGY TEXT RESULTS PATIENT: ABIMAEL WEAVER LOCATION: [facility] : 77 UNIT #: [id number] AGE: [address]: Juvenal Sharp MD SEX: F ORDER DR: 3. Cholecystectomy. No abnormal biliary dilation. 4. Portions of the pancreas are obscured by bowel gas, but the visualized pancreas appears normal. Dictated by... Dai Anne M.D. THIS IS AN ELECTRONICALLY VERIFIED REPORT Dai Anne M.D. at 04/20/2017 3:26 PM KEIKO/titi TD: 04/16/2017 11:44 JOB #: [id number] MEDICAL IMAGING REPORT Page 1 of 1 COPY
== END | disposition home or self-care (01) ==
LOC: CGUS 12:24
DX: B19.10 Unspecified viral hepatitis B without hepatic coma (principal); K76.0 Fatty (change of) liver, not elsewhere classified; Q61.02 Congenital multiple renal cysts; Z90.49 Acquired absence of other specified parts of digestive tract
CPT/HCPCS: 76700